=== PATIENT | female | born 1940 | race Caucasian/White ===

== ENCOUNTER 2025-01-10 10:56 | Inpatient (IN) | payer OTHER, SELFPAY ==
[2025-01-08] VITALS (16 sets, daily range): BP systolic 145–209; BP diastolic 62–86; BMI 32.9; BMI 32.2
[2025-01-08 01:06] LABS: % Basophils 0.6 % (0-2); % Eosinophils 2.7 % (0-6); % Immature Granulocytes 0.4 % (0-0.5); % Lymphocytes 10.9 % (20.5-51.1); % Monocytes 10.2 % (1.7-9.3); % Neutrophils 75.2 % (42.2-75.2); Absolute Basophils 0.1 10^3/uL (0-0.2); Absolute Eosinophils 0.3 10^3/uL (0-0.7); Hematocrit 32.8 % (37.0-47.0); Mean Corp Hgb Conc. 33.5 g/dL (33.0-37.0); Mean Corpuscular Hgb 33.1 pg (27.0-31.0); Mean Corpuscular Volume 98.8 fL (81.0-99.0); Mean Platelet Volume 11.7 fL (7.4-10.4); Nucleated Red Blood Cells % 0 %; Platelet Count 201 10^3/uL (130-400); Red Blood Cell Count 3.32 10^6/uL (4.20-5.40); White Blood Cell Count 9.3 10^3/uL (4.8-10.8)
[2025-01-08 01:27] LABS: Troponin I 0.014 ng/ml
[2025-01-08 02:01] LABS: ALT (SGPT) 19 U/L (0-35); AST (SGOT) 31 U/L (14-36); Albumin 4.5 g/dl (3.5-5.0); Alkaline Phosphatase 86 U/L (38-126); Blood Urea Nitrogen 44 mg/dl (7-17); Calcium 9.3 mg/dl (8.4-10.2); Carbon Dioxide 26 mmol/L (22-30); Chloride 107 mmol/L (98-107); Estimated Creatinine Clearance 29 ml/min; Glucose 93 mg/dl (70-99); Potassium 4.5 mmol/L (3.5-5.1); Sodium 145 mmol/L (135-145); Total Bilirubin 1.2 mg/dl (0.2-1.3); Total Protein 6.9 g/dl (6.3-8.2)
--- NOTE | 2025-01-08 02:16 | ED.GENMED ---
History of Present Illness
General
Chief Complaint: Chest Pain
Source: patient and family (Daughter at bedside)
Exam Limitations: none
Time Seen by Provider: 01/08/25 01:52
Nursing documentation reviewed up to this point in time: agreed with
History of Present Illness
History of Present Illness:
This is an 84-year-old woman who resides in [facility]. She has a history of CAD, aortic valve disease status post CABG, pacemaker and bioprosthetic aortic valve replacement 2020. She has history of chronic kidney disease stage II-III,
hypertension.
She is currently staying locally as her son is currently admitted to the ICU, in critical condition. She admits to moderate stress over the past few weeks and tonight shortly after dinner she developed acute lower substernal chest discomfort which
she described as a tightness associated with some shortness of breath. Chest tightness is nonradiating, she denies nausea nor palpitations, no abdominal nor back pain, no diaphoresis, no burping. Chest pain seems to be intermittent, unrelieved
with Tums. She then took one 325 mg aspirin. She arrives via EMS and upon arrival she is pain-free and remains pain-free.
No history of similar episodes of pain in the past.
She denies leg pain or swelling. No recent URI.
Past History
Past History
ED Past Medical History: CAD, HTN, Renal failure (Chronic kidney disease stage II-III), Valvular disease and Other (Osteoarthritis)
ED Past Surgical History: Cardiac (CABG, pacemaker, bioprosthetic aortic valve replacement 2020; PTCA with stent to the RCA August 2014) and Other (Renal artery stenting 2007)
Social History
Tobacco: Non-smoker
Alcohol: None
Personal:
Living: with family
Employment: Retired
Family History
Family History: Other (Noncontributory)
Phy Exam
Physical Exam
Physical Exam:
GENERAL: 84-year-old woman appears her stated age, bright and alert, pleasant, easily communicative and in no acute distress. Daughter is accompanying.
EYE: anicteric
NECK: Supple, nontender, no meningismus, no significant adenopathy.
ENT: oral mucosa is moist. No rhinorrhea.
CARDIAC: Regular rate and rhythm. no murmur.
LUNGS: Clear breath sounds bilaterally, no acute respiratory distress, no wheezes/rales/rhonchi
ABDOMEN: Soft, nondistended, without focal tenderness, normoactive BS.
NEUROLOGICAL: Alert and oriented x3, no focal neuro deficits. Gait is steady. Ambulates with cane.
SKIN: Warm and dry, normal color, skin intact. No rash.
MUSCULOSKELETAL: No C/C/E. peripheral pulses are full and equal b/l. No palpable tenderness.
PSYCH: Normal and appropriate interaction.
Scores
Heart Score for Chest Pain Patients
STEMI patient?: No
History: Moderately Suspicious
ECG: Normal
Age: >/= 65 years
Risk Factors: >/= 3 Risk Factors or History of CAD
Troponin: >1 - <3 x Normal Limit
Heart Score for Chest Pain Patients: 6
Heart Score Risk: 20.3% MACE over next 6 weeks
Course
Orders/Labs/Results
Orders:
Orders
01/08/25 00:30
ECG [Electrocardiogram (*1)] Urgent
Reason for Study: Chest Pain
01/08/25 00:33
EKG- Treatment ONCE
01/08/25 00:56
Complete Blood Count/With Diff Urgent
Troponin I Urgent
01/08/25 01:36
Comprehensive Metabolic Panel Urgent
Lipase Urgent
01/08/25 01:59
EKG- Treatment ONCE
01/08/25 02:16
CR Chest - 2 Views Urgent
Comment:
Reason For Exam: acute CP, SOB
01/08/25 03:00
Electrocardiogram (*1) Urgent
Reason for Study: Chest Pain
01/08/25 03:19
Troponin I Urgent
Abnormal Lab Results
01/08/25 01/08/25 01/08/25
00:56 01:36 03:19
RBC 3.32 L 10^6/uL
(4.20-5.40)
Hgb 11.0 L g/dL
(12.0-16.0)
Hct 32.8 L %
(37.0-47.0)
MCH 33.1 H pg
(27.0-31.0)
MPV 11.7 H fL
(7.4-10.4)
Absolute Neuts (auto) 7.0 H 10^3/uL
(1.4-6.5)
Absolute Lymphs (auto) 1.0 L 10^3/uL
(1.2-3.4)
Absolute Monos (auto) 1.0 H 10^3/uL
(0.1-0.6)
Lymphocytes % 10.9 L %
(20.5-51.1)
Monocytes % 10.2 H %
(1.7-9.3)
BUN 44 H mg/dl
(7-17)
Creatinine 1.3 H mg/dL
(0.6-1.0)
Troponin I 0.040 H* D ng/ml
Lipase 329 H U/L
(23-300)
01/08/25 00:56
01/08/25 01:36
Vital Signs
Initial and Last Documented VS:
Initial Vital Signs
Temp Pulse Resp BP Pulse Ox
98.2 F 91 20 176/70 98
01/08/25 00:36 01/08/25 00:36 01/08/25 00:36 01/08/25 00:36 01/08/25 00:36
Last Documented Vital Signs
Temp Pulse Resp BP Pulse Ox
98.2 F 82 13 182/73 94
01/08/25 00:36 01/08/25 04:00 01/08/25 04:00 01/08/25 04:00 01/08/25 04:00
MDM/Problems Addressed
Differential Diagnosis Includes:
Concern for acute ACS, GERD, other consideration is biliary colic, less likely dissection, pneumonia, CHF.
Remains comfortable and pain-free since arrival to the ED.
EKG similar and unchanged from previous April 2021.
Thus far labs are unremarkable. Creatinine of 1.3, at patient's baseline.
Troponin 0.014.
Will check chest x-ray.
Will plan to repeat troponin/EKG at 3 AM.
Chronic conditions affecting care: HTN, CAD and Kidney disease
*Radiology
Radiology exam reviewed: preliminary read by ED provider (Chest x-ray shows interstitial lung disease slightly progressed compared to previous 2020)
*Pulse Oximetry
Patient hypoxic: no
*EKG
Interpreted by ED Provider?: Yes
Comparison EKG: no changes (Unchanged from previous April 2021)
Rate: normal
Rhythm: sinus
[place]: normal axis
Interval: normal interval
QRS Pattern: poor R-wave progression
Ischemia: no ischemia
*Glass Worker Interpretation
Rate: normal
Interpretation: normal
Rhythm: sinus
*Critical Care Note
Total Time (30-74mins, 75-104mins- exclusive of procedures): Not Applicable
Update Note
Update Note:
04:00
Patient remains pain-free and comfortable.
Repeat EKG similar to previous but troponin has trended up to 0.04.
Significant concern for CAD/anginal event tonight thus will admit to hospital service, will continue to trend troponin.
ED Attending Note
-
Portions of this chart may have been created with voice recognition software.� Occasional wrong word or��sound alike� substitutions may have occurred due to the inherent limitations of voice recognition software.
Discharge Plan
Departure
Patient Disposition: Admit
Date of Disposition: 01/08/25
Time of Disposition: 04:00
Admit to: Telemetry
Admit to doctor: Stevo
Presentation/result/management discussed w/ accepting MD/DO: Hospitalist
Condition: Fair
Discharge Problem:
Chest pain rule out ACS
Prescriptions:
No Action
aspirin 81 MG tablet,chewable
81 mg PO DAILY
carvedilol 12.5 MG tablet
12.5 mg PO BID
amlodipine 10 MG tablet
5 mg PO DAILY
colchicine [Colcrys] 0.6 MG tablet
0.6 mg PO DAILYPRN PRN (Reason: gout)
Rx Instructions:
Takes 1 or 2 daily PRN
atorvastatin 80 mg Tablet
80 mg PO DAILY
ethacrynic acid 50 mg Tablet
100 mg PO DAILY
allopurinol 100 mg Tablet
100 mg PO DAILY
magnesium 200 mg Tablet
400 mg PO DAILY
Vitamin C
PO DAILY
Vitamin D3
PO DAILY
Referrals:
UNKNOWN - PT DOES,NOT KNOW [Family Provider] -
Interventions
Interventions:
*Risk Screen - Suicide Last Done: 01/08/25 00:36
*General Assessment Last Done: 01/08/25 00:36
*Neglect/Abuse Screening Last Done: 01/08/25 00:36
*ED- Fall Risk Assessment Last Done: 01/08/25 01:00
*ED COVID-19 Vaccine History Last Done: 01/08/25 00:36
ED- Cardiac Assessment Last Done: 01/08/25 01:00
Discharge Date and Time
Print Language: KAZAKH
[2025-01-08 03:13] LABS: Lipase 329 U/L (23-300)
--- NOTE | 2025-01-08 04:40 | HPS.HSE ---
Family Physician
-
Family Physician: NOT KNOW UNKNOWN - PT DOES
Chief Complaint
-
Chest Pain
History of Present Illness
Patient is an 84y F with PMH significant for ASCVD with CAD, carotid and renovascular disease who presents to ED complaining of chest pain / epigastric pain. Patient notes that she has had a remarkably stressful week or two. She has had
multiple friends / family members with recent health issues including her son who is currently hospitalized in our ICU. Patient states that she noted epigastric / lower chest 'tightness' this evening after dinner. Discomfort started around 10 PM
and prompted patient to present to the ED for further evaluation. She denies any associated symptoms such as nausea, diaphoresis, SOB, etc.
Upon arrival to the ED, patient noted that her discomfort had resolved. She is currently resting comfortably with no complaints.
Medical History
Past Medical History
Past Medical History: Reports Other
Additional Past Medical History:
ASCVD (CAD, Carotid Stenosis, Bilateral Renal Artery Stenosis)
Hypertension
CKD III
Gout
Past Surgical History: Reports Other
Additional Past Surgical History:
CABG
Aortic Valve Replacement
Bilateral Carotid Stents
Bilateral Renal Artery Stents
PTCA with Stent
Social History
Tobacco: Non-smoker
Alcohol: Occasional
Drug: None
Family History
Family History: Not pertinent
Allergies / Home Medications
Allergies reflects when Allergies were last updated in [facility].
Home Medications with original date entered in [facility]
Allergy/Medication List:
Allergies
Allergy/AdvReac Type Severity Reaction Status Date / Time
No Known Allergies Allergy Verified 05/09/21 07:44
Home Medications
aspirin 81 mg chewable tablet 81 mg PO DAILY 09/02/14
amlodipine 10 mg tablet 5 mg PO DAILY 05/09/21
carvedilol 12.5 mg tablet 12.5 mg PO BID 05/09/21
colchicine 0.6 mg tablet (Colcrys) 0.6 mg PO DAILYPRN PRN gout 05/09/21
Vitamin C PO DAILY 01/08/25
Vitamin D3 PO DAILY 01/08/25
allopurinol 100 mg tablet 100 mg PO DAILY 01/08/25
atorvastatin 80 mg tablet 80 mg PO DAILY 01/08/25
ethacrynic acid 50 mg tablet 100 mg PO DAILY 01/08/25
magnesium 200 mg tablet 400 mg PO DAILY 01/08/25
Review of Systems
-
History Source: Patient
A 12 point ROS was completed and negative except as noted: Yes
Constitutional: Reports Fatigue; Denies Fever or Chills
Respiratory: Denies Cough or Trouble Breathing
Cardiac: Reports Chest Pain; Denies Palpitations
Abdomen/GI: Reports Abdominal Pain; Denies Nausea, Vomiting or Diarrhea
: Denies Dysuria or Frequency
Musculoskeletal: Denies Joint Pain or Edema
Neurological: Denies Dizzy or Headache
Psych: Denies Depression or Anxiety
Physical Exam
Vital Signs
Vital Signs
Temp Pulse Resp BP Pulse Ox
98.2 F 82 13 182/73 94
01/08/25 00:36 01/08/25 04:00 01/08/25 04:00 01/08/25 04:00 01/08/25 04:00
Physical Exam
General: Other (84y F in no acute distress.)
HEENT: Moist mucous membranes and PERRLA
Respiratory: Clear; No Wheezes, Rales or Rhonchi
Cardiac: S1/S2 and Regular Rhythm; No Murmur
GI: Soft, Non Tender, Non Distended and Normal Bowel Sounds
Musculoskeletal: No Clubbing, No Cyanosis and No Edema
Neuro: AO x 3
Laboratory Results
-
01/08/25 00:56
01/08/25 01:36
Laboratory Results
Total Bilirubin 1.2 mg/dl (0.2-1.3) 01/08/25 01:36
AST 31 U/L (14-36) 01/08/25 01:36
ALT 19 U/L (0-35) 01/08/25 01:36
Alkaline Phosphatase 86 U/L (38-126) 01/08/25 01:36
Troponin I 0.040 ng/ml H* D 01/08/25 03:19
Lipase 329 U/L (23-300) H 01/08/25 01:36
Impression/Plan
-
A/P: Patient is an 84y F with PMH significant for extensive vascular disease who presents to ED complaining of epigastric pain / chest pain this evening.
Epigastric Pain / Chest Pain
ASCVD
- Observe overnight for further evaluation and treatment.
- Patient is pain-free at present.
- EKG shows LVH with repolarization changes and no change from prior tracings.
- Initial troponin 0.014 and slightly increased to 0.04.
- Continue to follow to peak.
- Monitor for any new / recurrent symptoms.
- Cardiology evaluation.
- Continue current CV med regimen including ASA, statin, beta-lizette, etc.
Benign Hypertension
- BP elevated in the ED in patient with anxious affect / hyperactivity.
- Suspect large stress component.
- Continue current BP medications.
- IV hydralazine as needed.
CKD III
- Stable. Renal function is at / near known baseline.
- Continue usual meds including ethacrynic acid.
- Follow for any changes.
DVT Prophylaxis: Subcut heparin
Code Status: Full
[2025-01-08] MEDS: PROTONIX 40 MG PO (08:51)
[2025-01-08] MEDS: ZYLOPRIM 100 MG PO (08:51)
[2025-01-08] MEDS: EDECRIN 100 MG PO (08:51)
[2025-01-08] MEDS: LOW STRENGTH ASPIRIN 81 MG PO (08:51)
[2025-01-08] MEDS: COREG 12.5 MG PO (08:51)
[2025-01-08] MEDS: LIPITOR 80 MG PO (08:51)
[2025-01-08] MEDS: NORVASC 5 MG PO (08:51)
[2025-01-08] MEDS: HEPARIN 5000 UNITS SC (08:53)
[2025-01-08 09:00] LABS: Hematocrit 33.6 % (37.0-47.0); Hemoglobin 10.9 g/dL (12.0-16.0); Mean Corp Hgb Conc. 32.4 g/dL (33.0-37.0); Mean Corpuscular Hgb 32.2 pg (27.0-31.0); Mean Corpuscular Volume 99.1 fL (81.0-99.0); Mean Platelet Volume 11.5 fL (7.4-10.4); Platelet Count 205 10^3/uL (130-400); Red Blood Cell Count 3.39 10^6/uL (4.20-5.40); Red Cell Dist. Width 13.9 % (11.5-14.5); White Blood Cell Count 8.9 10^3/uL (4.8-10.8)
[2025-01-08 09:25] LABS: Troponin I 0.096 ng/ml
[2025-01-08 09:39] LABS: Blood Urea Nitrogen 38 mg/dl (7-17); Calcium 9.7 mg/dl (8.4-10.2); Carbon Dioxide 26 mmol/L (22-30); Chloride 107 mmol/L (98-107); Estimated Creatinine Clearance 31 ml/min; Glucose 100 mg/dl (70-99); HDL Cholesterol 50 mg/dl; LDL Cholesterol, Calculated 40 mg/dl; Lipase 284 U/L (23-300); Potassium 4.2 mmol/L (3.5-5.1); Sodium 143 mmol/L (135-145); Total Cholesterol 108 mg/dl (50-199); Triglyceride 93 mg/dl (10-149); Very Low Density Lipoprotein 18 mg/dl (0-30); eGFR 44.36
--- NOTE | 2025-01-08 10:26 | W.PN.HOSP.TC ---
Today's Communication/Plan
-
See PN
Assessment / Plan
Assessment / Plan
84yo F with PMHX of CAD s/p PCI and OK, carotid stenosis s/p b/l stents, b/l renal stents, CKD stge 3a-b, gout, HLD came with episode of retrosternal pressure started after dinner, lasted for appr 30min. She had episodes of the same before. Patient
currnetly going through a lot family issues and excessively anxious about her son being in ICU.
A/P:
#Chest pain, concern for cardiac
#Bioprosthetic AV
#CAD s/p PCI
Serial troponin
EKG without overt ST elevation
Nitro PRN
Cardio consult
telemetry
Heparin drip
cont ASA, Lipitor, BB
Echo
#Poorly controlled HTN, concenr for HTN emergency
adjust BP meds
spatient not on ARB/ACEi, most liekyl 2/2 Hx of renal artery stenosis
Labetalol PRN
#CKD stage 3a-b
#Gout
cont home meds
#Macrocytic anemia
check B12, folate
DVT ppx hep drip
Full code
I have spent at least 58min reviewing chart, test results, communication with consultants and providing direct patient care
Anticipated Discharge: > 48 hours
Subjective/Interval History
-
Date of Service: January 08, 2025
Objective Data
-
Labs:
Laboratory Results
01/08/25 01/08/25 01/08/25
00:56 01:36 08:35
WBC 9.3
Hgb 11.0 L
Hct 32.8 L
Plt Count 201
APTT
Sodium Cancelled 145 143
Potassium Cancelled 4.5 4.2
Chloride Cancelled 107 107
Carbon Dioxide Cancelled 26 26
BUN Cancelled 44 H 38 H
Creatinine Cancelled 1.3 H 1.2 H
Glucose Cancelled 93 100 H
Calcium Cancelled 9.3 9.7
Total Bilirubin Cancelled 1.2
AST Cancelled 31
ALT Cancelled 19
Alkaline Phosphatase Cancelled 86
01/08/25 01/08/25
08:36 10:24
WBC 8.9
Hgb 10.9 L
Hct 33.6 L
Plt Count 205
APTT Pending
Sodium
Potassium
Chloride
Carbon Dioxide
BUN
Creatinine
Glucose
Calcium
Total Bilirubin
AST
ALT
Alkaline Phosphatase
Vital Signs:
Vital Signs
Temp Pulse Resp BP Pulse Ox
98.5 F 84 13 176/81 95
01/08/25 07:00 01/08/25 07:00 01/08/25 07:00 01/08/25 10:22 01/08/25 07:00
Review of Systems
-
History Source: Patient
All other systems: Reviewed and negative
Physical Exam
-
General: No Apparent Distress
HEENT: Normocephalic
Respiratory: Clear to Auscultation; Negative Wheezes or Rhonchi
Cardiac: Regular Rhythm; Negative Murmur
GI: Soft, Nontender and Nondistended
Genito-urinary: No Costovertebral Tender
Musculoskeletal: No Clubbing, No Cyanosis and No Edema
Neuro: Awake, Alert, Oriented and AO x 3
Psych: Calm
--- NOTE | 2025-01-08 11:05 | CON.CAR ---
Addendum entered and electronically signed by Fidel Parker MD 01/08/25 12:36:
84 yo female with PMH of CAD and , s/p CABG and bio-AVR at [facility] 2020, HTN is admitted with chest pressure. She is currently free of pain/pressure. Exam with RRR, no murmurs, no edema. Intial BP 209/86. TnI 0.096 and trending. EKG: NSR,
LVH, anterior infarct.
Chest pressure, elevated troponin. Concern for ACS vs HTN emergency with non-ischemic troponin elevation. ASA 324mg, heparin drip as we trend troponin.
Original Note:
Consultation
Consultation Request
Date/Time Consultation Requested: 01/08/2025 0900
Date/Time Consultation Performed: 01/08/2025 1045
Requesting Provider: Dr Tarango
Performing Provider: Dr. Parker
Reason for Consultation: CP
Medical History
-
Chief Complaint: CP
History of Present Illness:
84 y/o pt who follows at [facility]. Torres with history of CAD/CAB, / bio AVR ( [facility] [address] Dr. Myers), SSS/PPM,carotid stenosis, renal artery stenosis, CKD3, HTN. She ate dinner last pm around 7p, had ice cream shortly after. She
developed epigastric pressure discomfort into the sternal area. She was belching as well. Latty like reflux. She took TUMS but daughter thought it was lasting longer so wanted her to be evaluated. It went away eventually. No further discomfort or
pain overnight. Usually is active without recent CP, SOB, palps. Increased stress recently as her son is currently admitted her in ICU.
Past Medical History
Past Medical History: Other ( /AVR, CAD/ CAB, CKD, HTN,carotid stenosis, renal artery stenosis,gout)
Past Surgical History: Other (CAB, AVR,PPM, renal artery stents)
Social History
Tobacco: Non-Smoker
Alcohol: Occasional
Family History
Family History: Reviewed & Not Pertinent
Allergies / Home Medications
Allergy/AdvReac Type Severity Reaction Status Date / Time
No Known Allergies Allergy Verified 05/09/21 07:44
�Medication �Instructions �Recorded �Confirmed �Type
aspirin 81 mg chewable tablet 81 mg PO DAILY 09/02/14 01/08/25 History
amlodipine 10 mg tablet 5 mg PO DAILY 05/09/21 01/08/25 History
carvedilol 12.5 mg tablet 12.5 mg PO BID 05/09/21 01/08/25 History
colchicine 0.6 mg tablet (Colcrys) 0.6 mg PO DAILYPRN PRN gout 05/09/21 01/08/25 History
Vitamin C PO DAILY 01/08/25 History
Vitamin D3 PO DAILY 01/08/25 History
allopurinol 100 mg tablet 100 mg PO DAILY 01/08/25 01/08/25 History
atorvastatin 80 mg tablet 80 mg PO DAILY 01/08/25 01/08/25 History
ethacrynic acid 50 mg tablet 100 mg PO DAILY 01/08/25 01/08/25 History
magnesium 200 mg tablet 400 mg PO DAILY 01/08/25 01/08/25 History
Review of Systems
-
History Source: Patient
Constitutional: No Symptoms
EENT: No Symptoms
Respiratory: No Symptoms
Cardiac: No Symptoms
Abdomen/GI: No Symptoms
Musculoskeletal: No Symptoms
Neurological: No Symptoms
Physical Exam
Vital Signs
Temp Pulse Resp BP Pulse Ox
98.5 F 84 13 176/81 95
01/08/25 07:00 01/08/25 07:00 01/08/25 07:00 01/08/25 10:22 01/08/25 07:00
Lab Results
01/08/25 08:36
01/08/25 08:35
Troponin I 0.096 ng/ml H* D 01/08/25 08:36
Physical Exam
General: Well Developed, Well Nourished and No Apparent Distress
HEENT: Normocephalic and Moist Mucous Membranes
Respiratory: Clear
Cardiac: S1/S2 and Regular Rhythm
GI: Soft, Non Tender and Normal Bowel Sounds
Musculoskeletal: No Edema
Neuro: AO x 3
Impression / Plan
-
CP:
-symptoms more consistent with GI but troponins were not normal
-currently no recurrent symptoms since admission
-EKG no acute changes
-con't to trend troponin
CAD:
-prior CAB 2020 with AVR
-follows with DR. Brian Earl February- will request records.
-con't current medications
AVR:
-2020 at [facility]
PPM:
-pt unsure what brand
HTN:
-elevated on admit
-coreg was titrated
CKD3b:
-chronic stable
-history of renal artery stenosis
Data Reviewed
-
EKG: Tracing Personally Visualized and interpreted (NSR 81 bpm, LVH, poor R wave progression)
Radiology: Report Reviewed by me (CXR 01/08/25 no acute process)
[2025-01-08] MEDS: HEPARIN 25000 UNITS/250 ML IV (11:15)
[2025-01-08 12:36] LABS: TSH Reflex To Free T4 1.32 uIU/ml (0.47-4.68)
[2025-01-08 13:12] LABS: Folate > 20.0 ng/ml (2.76-20); Vitamin B12 340 pg/ml (239-931)
[2025-01-08 13:42] LABS: Glycohemoglobin (HgbA1c) 5.5 % (4.0-5.6)
[2025-01-08 15:29] LABS: Troponin I 0.137 ng/ml
[2025-01-08 18:00] LABS: APTT 99.7 Sec (23.4-35.0)
[2025-01-08] MEDS: COREG 25 MG PO (20:26)
[2025-01-08 21:35] LABS: Troponin I 0.101 ng/ml
[2025-01-09] VITALS (7 sets, daily range): BP systolic 107–166; BP diastolic 51–85; BMI 31.7
[2025-01-09 02:08] LABS: APTT 115.1 Sec (23.4-35.0)
[2025-01-09 06:05] LABS: % Basophils 0.5 % (0-2); % Eosinophils 3.3 % (0-6); % Immature Granulocytes 0.3 % (0-0.5); % Lymphocytes 12.6 % (20.5-51.1); % Neutrophils 74.3 % (42.2-75.2); Absolute Basophils 0.1 10^3/uL (0-0.2); Absolute Eosinophils 0.4 10^3/uL (0-0.7); Absolute Lymphocytes 1.5 10^3/uL (1.2-3.4); Absolute Neutrophils 8.6 10^3/uL (1.4-6.5); Hematocrit 33.8 % (37.0-47.0); Hemoglobin 10.9 g/dL (12.0-16.0); Mean Corp Hgb Conc. 32.2 g/dL (33.0-37.0); Mean Corpuscular Hgb 32.1 pg (27.0-31.0); Mean Corpuscular Volume 99.4 fL (81.0-99.0); Mean Platelet Volume 11.7 fL (7.4-10.4); Nucleated Red Blood Cells % 0 %; Platelet Count 202 10^3/uL (130-400); Red Cell Dist. Width 13.8 % (11.5-14.5); White Blood Cell Count 11.5 10^3/uL (4.8-10.8)
[2025-01-09 06:35] LABS: ALT (SGPT) 15 U/L (0-35); AST (SGOT) 23 U/L (14-36); Albumin 3.6 g/dl (3.5-5.0); Alkaline Phosphatase 90 U/L (38-126); Blood Urea Nitrogen 39 mg/dl (7-17); Calcium 9.5 mg/dl (8.4-10.2); Carbon Dioxide 28 mmol/L (22-30); Chloride 104 mmol/L (98-107); Estimated Creatinine Clearance 29 ml/min; Glucose 91 mg/dl (70-99); Potassium 4.2 mmol/L (3.5-5.1); Sodium 140 mmol/L (135-145); Total Bilirubin 1.3 mg/dl (0.2-1.3)
[2025-01-09] MEDS: EDECRIN 100 MG PO (08:03)
[2025-01-09] MEDS: ZYLOPRIM 100 MG PO (08:03)
[2025-01-09] MEDS: LOW STRENGTH ASPIRIN 81 MG PO (08:03)
[2025-01-09] MEDS: NORVASC 10 MG PO (08:03)
[2025-01-09] MEDS: LIPITOR 80 MG PO (08:03)
[2025-01-09] MEDS: COREG 25 MG PO ×2 (08:03→20:51)
[2025-01-09 08:10] LABS: APTT 85.4 Sec (23.4-35.0)
[2025-01-09] MEDS: PROTONIX 40 MG PO (08:12)
--- NOTE | 2025-01-09 10:00 | W.PN.HOSP.TC ---
Today's Communication/Plan
-
Cath in AM
Assessment / Plan
Assessment / Plan
84yo F with PMHX of CAD s/p PCI and [place], carotid stenosis s/p b/l stents, b/l renal stents, CKD stge 3a-b, gout, HLD came with episode of retrosternal pressure started after dinner, lasted for appr 30min. She had episodes of the same before. Patient
currnetly going through a lot family issues and excessively anxious about her son being in ICU. Planned for cardiac cath on 01/10/25
A/P:
#Chest pain, concern for cardiac
#Bioprosthetic AV
#CAD s/p PCI
Serial troponin
EKG without overt ST elevation
Nitro PRN
Cardio consult: for cardiac cath on 01/10/25
telemetry
Heparin drip
cont ASA, Lipitor, BB
Echo
#Poorly controlled HTN, concenr for HTN emergency
adjust BP meds
patient not on ARB/ACEi, most likely 2/2 Hx of renal artery stenosis
Labetalol PRN
#CKD stage 3a-b
#Gout
cont home meds
#Macrocytic anemia
B12, folate WNL
#mild leukocytosis
w/o signs of infection
afebrile
monitor CBC
DVT ppx hep drip
Full code
I have spent at least 38min reviewing chart, test results, communication with consultants and providing direct patient care
Anticipated Discharge: 24 - 48 hours
Subjective/Interval History
-
Date of Service: January 09, 2025
Objective Data
-
Labs:
Laboratory Results
01/09/25 01/09/25 01/09/25
01:45 05:32 07:02
WBC 11.5 H
Hgb 10.9 L
Hct 33.8 L
Plt Count 202
APTT 115.1 H 85.4 H
Sodium 140
Potassium 4.2
Chloride 104
Carbon Dioxide 28
BUN 39 H
Creatinine 1.3 H
Glucose 91
Calcium 9.5
Total Bilirubin 1.3
AST 23
ALT 15
Alkaline Phosphatase 90
01/09/25
13:50
WBC
Hgb
Hct
Plt Count
APTT Pending
Sodium
Potassium
Chloride
Carbon Dioxide
BUN
Creatinine
Glucose
Calcium
Total Bilirubin
AST
ALT
Alkaline Phosphatase
Vital Signs:
Vital Signs
Temp Pulse Resp BP Pulse Ox
98.2 F 72 16 166/76 98
01/09/25 07:55 01/09/25 07:55 01/09/25 07:55 01/09/25 07:55 01/09/25 07:55
I&O
01/08/25 01/09/25 01/10/25
06:59 06:59 06:59
Output Total 450 / 450
Balance -450 / -450
Review of Systems
-
History Source: Patient
Constitutional: Reports No Symptoms
Physical Exam
-
General: Comfortable
Respiratory: Clear to Auscultation
GI: Soft, Nontender and Nondistended
Neuro: Awake, Alert, Oriented and AO x 3
Psych: Calm
--- NOTE | 2025-01-09 13:47 | W.PN.CD ---
Today's Communication / Plan
-
ASA, heparin drip
cardiac cath tomorrow
Impression / Plan
-
NSTEMI
-diagnosis is a threat to life
-peak trop 0.137
-ASA, heparin drip
-monitor PTT and Hgb while on heparin
-cardiac cath tomorrow
CAD:
-prior CABG [address] [facility]
-follows with DR. Brian Earl February- records requested
-plan as above
AVR:
-[address] [facility]
-echo
PPM:
-pt unsure what brand
HTN:
-elevated on admit; she also reports component of white coat syndrome
-coreg and amlodipine were increased
CKD3b:
-chronic stable
-history of renal artery stenosis
Physical Exam
Vital Signs/Labs
Vital Signs
Temp Pulse Resp BP Pulse Ox
98.0 F 76 16 107/51 94
01/09/25 11:00 01/09/25 11:00 01/09/25 11:00 01/09/25 11:00 01/09/25 12:45
01/08/25 01/09/25 01/10/25
06:59 06:59 06:59
Actual Weight 74.871 kg 73.68 kg
01/09/25 05:32
01/09/25 05:32
APTT 85.4 Sec (23.4-35.0) H 01/09/25 07:02
Triglycerides 93 mg/dl (10-149) 01/08/25 08:35
LDL Cholesterol, Calc 40 mg/dl 01/08/25 08:35
VLDL Cholesterol, Calc 18 mg/dl (0-30) 01/08/25 08:35
HDL Cholesterol 50 mg/dl 01/08/25 08:35
LAB Results
01/08/25 01/08/25 01/08/25
00:56 03:19 08:36
Troponin I 0.014 0.040 H* D 0.096 H* D
01/08/25 01/08/25 01/08/25
14:25 15:30 21:02
Troponin I 0.137 H* D Cancelled 0.101 H* D
01/08/25
21:30
Troponin I Cancelled
Physical Exam
Constitutional: No acute distress and Comfortable
EENT: Moist mucous membranes
Cardiovascular: Rhythm & rate is regular, Pedal edema is absent, JVD pressure is normal and Systolic murmur absent
Respiratory: Respiratory effort normal and Lungs clear to auscul.
Neuro/Psych: AO x 3
Data Reviewed
-
Date of Service: January 09, 2025
EKG: Other (Tele: SR 80s)
Labs: Labs Reviewed by me
[2025-01-09 13:58] LABS: APTT 72.8 Sec (23.4-35.0)
[2025-01-09] MEDS: HEPARIN 25000 UNITS/250 ML IV (14:24)
--- NOTE | 2025-01-09 15:56 | CM ---
poultry farm manager reviewed patient's chart and patient was admitted under OBS, [facility] letter provided to patient but she did not sign, patient states she is going for surgery tomorrow. Patient lives alone in a one story home patient is independent with
adl's and uses a cane with ambulation, patient has 3 canes throughout home. Plan is to home when stable.
PCP: Dr. Rios
Pharmacy [facility]
Plan; Home when stable.
[2025-01-09] MEDS: MELATONIN 5 MG PO (22:32)
[2025-01-10] VITALS (16 sets, daily range): BP systolic 91–181; BP diastolic 50–76; BMI 31.5
[2025-01-10 05:17] LABS: APTT 105.4 Sec (23.4-35.0)
[2025-01-10] MEDS: LOW STRENGTH ASPIRIN 81 MG PO (08:19)
--- NOTE | 2025-01-10 08:20 | W.PN.CD ---
Today's Communication / Plan
-
Echo.
Cath.
Impression / Plan
-
Impression/Plan: 84 y/o female vasculopath with a history of renal artery stenosis s/p bilateral stents, MILAGROS s/p bilateral carotid stents, s/p BIO-AVR (#21 Wallace Magna Ease Model 3300, 05/20/2021) and CAD s/p prior ostial RCA PCI and CABG (MORSE
to LAD, SVG to OM1, SVG to RPDA) admitted with NSTEMI.
#NSTEMI
-Acute, diagnosis is a threat to life.
-Troponin peaked at 0.137.
-Continue ASA, heparin drip.
-Cardiac cath today.
#CAD
-Chronic.
-S/P 3V CABG (MORSE to LAD, SVG to OM, SVG to RPDA, 05/20/2021) with AVR at [facility].
-Follows with Rajat Ewing Navarro. Records requested.
-Cath today.
#Severe
-Chronic, s/p #21 Wallace Magna Ease 3300 AVR at [facility].
-Echocardiogram pending.
#PPM:
-Chronic, stable.
-Pt unsure what brand.
#Labile HTN:
-History of labile HTN with ANISA, hx of bilateral renal artery stents.
-Elevated on admission; she also reports component of white coat syndrome.
-Carvedilol and amlodipine were increased.
#CKD3b:
-Chronic, stable.
-History of renal artery stenosis s/p bilateral renal artery stents.
#MILAGROS
-Chronic, stable.
-History of prior carotid artery stents.
Subjective/Interval History:
BP improved with higher dose carvedilol.
DATA:
Cardiac Catheterization, 05/09/2021:
CONCLUSIONS:
1. Multivessel coronary artery disease involving the proximal and mid LAD, chronic total occlusion of the obtuse marginal and a visibly underexpanded stent in the ostium of the RCA.
2. Moderately elevated filling pressures.
3. Indeterminate aortic valve stenosis, moderate to severe on echocardiogram with a peak to peak gradient of 35 mmHg on catheterization.
Transthoracic Echo, 05/08/2021:
CONCLUSIONS
Mild left ventricular systolic dysfunction.
Left ventricular ejection fraction is 45% by visual assessment.
Inferior and inferolateral severe hypokinsis.
Moderate to severe aortic stenosis (peak 64, mean 35, GRETEL 1 cm2).
Estimated PASP 48 mmHg.
Moderate aortic regurgitation .
Mild concentric left ventricular hypertrophy.
Mild LAE.
Mild mitral stenosis.
No prior study available for comparison.
Physical Exam
Vital Signs/Labs
Vital Signs
Temp Pulse Resp BP Pulse Ox
37.2 C 81 17 138/61 97
01/10/25 03:44 01/10/25 03:44 01/10/25 03:44 01/10/25 03:44 01/10/25 03:44
01/08/25 01/09/25 01/10/25
11:59 11:59 11:59
Actual Weight 74.871 kg 73.68 kg 73.227 kg
APTT 105.4 Sec (23.4-35.0) H 01/10/25 04:41
Triglycerides 93 mg/dl (10-149) 01/08/25 08:35
LDL Cholesterol, Calc 40 mg/dl 01/08/25 08:35
VLDL Cholesterol, Calc 18 mg/dl (0-30) 01/08/25 08:35
HDL Cholesterol 50 mg/dl 01/08/25 08:35
LAB Results
01/08/25 01/08/25 01/08/25
00:56 03:19 08:36
Troponin I 0.014 0.040 H* D 0.096 H* D
01/08/25 01/08/25 01/08/25
14:25 15:30 21:02
Troponin I 0.137 H* D Cancelled 0.101 H* D
01/08/25
21:30
Troponin I Cancelled
Physical Exam
Constitutional: No acute distress and Comfortable
EENT: Anicteric and Moist mucous membranes
Cardiovascular: Rhythm & rate is regular, Pedal edema is absent, JVD pressure is normal, S1S2 is normal and Murmur/rub/gallop absent
Respiratory: Respiratory effort normal, Lungs clear to auscul., Wheeze Absent, Crackles Absent and Rhonchi Absent
GI: Soft, Distention absent, Flat, Non tender and Normal bowel sounds
Neuro/Psych: AO x 3
Other: Other (Left radial pulse is 1+/4.)
Data Reviewed
-
Date of Service: January 10, 2025
Medical Decision Making: Reviewed Test Results, Independent Historian Assessment and Test Interpretation
EKG: Tracing Personally Visualized and interpreted and Report Reviewed by me
X-Ray/CT/US/MRI/NUC/PET: Image Personally Visualized and interpreted and Report Reviewed by me
Medical Tests (PFT, Pathology etc): Image Personally Visualized and interpreted and Report Reviewed by me
Labs: Labs Reviewed by me
Old Records: Reviewed
[2025-01-10] MEDS: PLAVIX 75 MG PO (11:03)
[2025-01-10] MEDS: EDECRIN 100 MG PO (11:06)
[2025-01-10] MEDS: COREG 25 MG PO ×2 (11:07→23:34)
[2025-01-10] MEDS: LIPITOR 80 MG PO (11:07)
[2025-01-10] MEDS: PROTONIX 40 MG PO (11:07)
[2025-01-10] MEDS: ZYLOPRIM 100 MG PO (11:07)
[2025-01-10] MEDS: NORVASC 10 MG PO (11:07)
--- NOTE | 2025-01-10 11:23 | W.PN.HOSP.TC ---
Today's Communication/Plan
-
monitor BP
Possible d/c in AM
Assessment / Plan
Assessment / Plan
84yo F with PMHX of CAD s/p PCI and MN, carotid stenosis s/p b/l stents, b/l renal stents, CKD stge 3a-b, gout, HLD came with episode of retrosternal pressure started after dinner, lasted for appr 30min. She had episodes of the same before. Patient
currnetly going through a lot family issues and excessively anxious about her son being in ICU. S/p cardiac cath on 01/10/25
A/P:
#Chest pain, concern for cardiac, NSTEMI
#Bioprosthetic AV
#CAD s/p PCI
Serial troponin
EKG without overt ST elevation
Nitro PRN
Cardio consult: for cardiac cath on 01/10/25
telemetry
Heparin drip stopped after cath
cont ASA, Lipitor, BB
Echo
TSH WNL
LDL 40
#Poorly controlled HTN, concern for HTN emergency
adjust BP meds: increased Norvasc and Coreg
patient not on ARB/ACEi, most likely 2/2 Hx of renal artery stenosis
Labetalol PRN
#CKD stage 3a-b
#Gout
cont home meds
#Macrocytic anemia
B12, folate WNL
#mild leukocytosis
w/o signs of infection
afebrile
monitor CBC
DVT ppx hep drip
Full code
I have spent at least 38min reviewing chart, test results, communication with consultants and providing direct patient care
Anticipated Discharge: Within 24 hours
Subjective/Interval History
-
Date of Service: January 10, 2025
Objective Data
-
Labs:
Laboratory Results
01/10/25 01/10/25 01/10/25
04:41 06:00 10:57
WBC Cancelled
Hgb Cancelled
Hct Cancelled
Plt Count Cancelled
APTT 105.4 H Pending
Sodium Pending
Potassium Pending
Chloride Pending
Carbon Dioxide Pending
BUN Pending
Creatinine Pending
Glucose Pending
Calcium Pending
Total Bilirubin Pending
AST Pending
ALT Pending
Alkaline Phosphatase Pending
Vital Signs:
Vital Signs
Temp Pulse Resp BP Pulse Ox
98.0 F 75 18 134/71 97
01/10/25 11:00 01/10/25 11:06 01/10/25 11:00 01/10/25 11:06 01/10/25 11:00
I&O
01/09/25 01/10/25 01/11/25
06:59 06:59 06:59
Intake Total 1320 / 1320
Output Total 450 / 450 900 / 900
Balance -450 / -450 420 / 420
Review of Systems
-
History Source: Patient
All other systems: Reviewed and negative
Physical Exam
-
General: No Apparent Distress
HEENT: Normocephalic
GI: Soft, Nontender and Nondistended
Skin: Warm
Neuro: Awake, Alert, Oriented and AO x 3
Psych: Calm
[2025-01-10 11:30] LABS: APTT 31.6 Sec (23.4-35.0)
--- NOTE | 2025-01-10 13:14 | ITS.CL.CATH ---
[facility] - Catheterization
Cardiac Catheterization
Procedure Report:
CARDIAC CATHETERIZATION REPORT
Date of Procedure: 01/10/2025
Referring: Fidel Parker M.D., Ph.D.
INDICATION: Known CAD status post prior CABG, Non-ST elevation myocardial infarction, unclear type.
PROCEDURE:
1. Left heart catheterization
2. Coronary angiography.
3. Bypass angiography.
A total of 28 minutes of procedural/moderate sedation was utilized. An independent medical billing representative was present to assist with and help manage the patient's level of consciousness and physiologic status.
ACCESS:
1. 6 English right common femoral artery using a modified Seldinger technique with a micropuncture kit under ultrasound guidance. Ultrasound image obtained.
CATHETERS:
1. 5 English JL 4.
2. 5 English JR4.
3. 5 English AL-1.
4. 5 English multipurpose.
HEMODYNAMIC DATA
Weight (kg): 73.0
AO (s/d/x, mmHg): 162/66/101
LV (s/x mmHg): 168/15
LEFT VENTRICULOGRAPHY: Not performed. A bioprosthetic aortic valve replacement is well-seated.
CORONARY ANGIOGRAPHY
Dominance: Right.
Left Main: Normal size, bifurcating vessel. There is some ostial/proximal vessel narrowing that is difficult to characterize.
LAD: Normal size vessel giving rise to a single large diagonal which parallels the mid and distal LAD and a dual system. There is an 80%, densely calcified proximal LAD lesion followed by a 70+% lesion spanning the origin of the diagonal. There
is a 70-80% lesion in the proximal margin of the large diagonal. The diagonal is filled via patent MORSE graft.
Ramus: Congenitally absent.
Circumflex: Normal size, nondominant graft giving rise to 2 obtuse marginals. OM1 and OM 2 are chronically totally occluded at their origin. OM1 is supplied by a patent vein graft.
RCA: Large size, dominant vessel. A visibly underexpanded stent is seated in the origin of the RCA which cannot be directly engaged. And has a residual 70% stenosis.
BYPASS GRAFT ANGIOGRAPHY
MORSE to D1: Normal size graft with end-to-side anastomosis to the large first diagonal which parallels the LAD. There is no evidence of stenosis or graft degeneration.
SVG to OM1: Normal size graft with end-to-side anastomosis to the small first obtuse marginal. There is a 50% lesion in the proximal margin of the vein graft. There is not 80-90% lesion at the distal anastomosis.
SVG to distal RCA: Occluded at its origin.
INTERVENTION(S)
None.
Closure Device: 6 English Angio-Seal.
Radiation (mGy): 417.01
DAP (cm2.Gy): 37.4613
Fluoroscopy time (minutes): 11.7
CONCLUSIONS
1. Right dominant circulation with ostial/proximal left main disease that is difficult to characterize, and 80% densely calcified proximal LAD lesion followed by a 70+ percent LAD lesion spanning the origin of the first diagonal, 70-80% lesion in
the proximal margin of the first diagonal, chronic total occlusions of the first and second obtuse marginal and a visibly underexpanded stent in the ostium of the RCA with a residual 70% stenosis, status post bypass (patent MORSE to D1, patent SVG to
OM1 with a 50% lesion in the proximal graft and a 80-, 90% lesion at the anastomosis occluded SVG to distal RCA).
2. Mildly elevated filling pressures (LVEDP = 15 mmHg at 73.0 kg).
RECOMMENDATIONS:
1. Expectant management after cardiac catheterization via right common femoral approach.
2. Limited weight bearing for one week.
3. After reviewing the patient's symptoms (1 episode of indigestion) and evaluating her clinical presentation with a low troponin elevation in the context of severe, labile hypertension, the decision was made to manage the patient medically given
her advanced age and poor targets. The most obvious culprit is the 90% lesion in the vein graft anastomosis to OM1, however the OM1 vessel is a small territory, smaller than the catheter, making the likelihood of trauma to the artery quite high.
4. If the patient experiences typical anginal symptoms with her activities of daily living, we can consider intervention on the LAD and left main, though this was deferred at this time due to the revascularization of the parallel territory.
5. The right coronary artery is not accessible for reintervention.
6. OMT/GDMT as hemodynamics will tolerate.
7. Add clopidogrel 75 mg daily for medical management of NSTEMI.
Copy to: Fidel Parker M.D., Ph.D., Paco Tarango M.D.
Pavan Sim DO, FACC, FACP
[2025-01-10 13:35] LABS: ALT (SGPT) 15 U/L (0-35); AST (SGOT) 19 U/L (14-36); Albumin 3.8 g/dl (3.5-5.0); Alkaline Phosphatase 88 U/L (38-126); Blood Urea Nitrogen 41 mg/dl (7-17); Calcium 9.5 mg/dl (8.4-10.2); Carbon Dioxide 30 mmol/L (22-30); Chloride 106 mmol/L (98-107); Estimated Creatinine Clearance 26 ml/min; Glucose 105 mg/dl (70-99); Potassium 4.3 mmol/L (3.5-5.1); Sodium 142 mmol/L (135-145); Total Bilirubin 1.5 mg/dl (0.2-1.3); Total Protein 6.3 g/dl (6.3-8.2); eGFR 36.87
[2025-01-10 14:55] LABS: % Basophils 0.3 % (0-2); % Eosinophils 1.4 % (0-6); % Immature Granulocytes 0.5 % (0-0.5); % Lymphocytes 6.4 % (20.5-51.1); % Monocytes 11.1 % (1.7-9.3); % Neutrophils 80.3 % (42.2-75.2); Absolute Eosinophils 0.2 10^3/uL (0-0.7); Absolute Immature Granulocytes 0.1 10^3/uL (0-0.05); Absolute Lymphocytes 0.7 10^3/uL (1.2-3.4); Absolute Monocytes 1.2 10^3/uL (0.1-0.6); Absolute Neutrophils 8.9 10^3/uL (1.4-6.5); Hematocrit 33.2 % (37.0-47.0); Hemoglobin 10.9 g/dL (12.0-16.0); Mean Corp Hgb Conc. 32.8 g/dL (33.0-37.0); Mean Corpuscular Hgb 32.3 pg (27.0-31.0); Mean Corpuscular Volume 98.5 fL (81.0-99.0); Mean Platelet Volume 11.6 fL (7.4-10.4); Nucleated Red Blood Cells % 0 %; Platelet Count 193 10^3/uL (130-400); Red Blood Cell Count 3.37 10^6/uL (4.20-5.40); White Blood Cell Count 11.1 10^3/uL (4.8-10.8)
[2025-01-10] MEDS: NSS 500 IV (16:27)
[2025-01-10 16:44] LABS: COVID-19 Antigen Negative (Negative)
[2025-01-10 18:11] LABS: Urine Albumin 2+ (Neg - Trace); Urine Bilirubin Negative (Negative); Urine Character Cloudy (Clear); Urine Color Yellow; Urine Glucose Negative (Negative); Urine Ketone Negative (Negative); Urine Leukocyte 3+ (Negative); Urine Nitrite Negative (Negative); Urine Occult Blood 2+ (Negative); Urine Urobilinogen Negative (Neg - 1+)
[2025-01-10 19:17] LABS: Urine Squamous Cell 0-2 /LPF (Few)
[2025-01-10 19:18] LABS: Urine White Cell >100 /HPF (0-5)
[2025-01-10 19:19] LABS: Urine Bacteria Many (Negative); Urine Red Blood Cell 0-2 /HPF (0-2)
[2025-01-10] MEDS: TYLENOL 650 MG PO (21:37)
[2025-01-10] MEDS: ROCEPHIN 1000 MG IV (21:48)
[2025-01-10] MEDS: STERILE WATER FOR INJECTION 10 ML IV (21:48)
[2025-01-11] VITALS (7 sets, daily range): BP systolic 104–152; BP diastolic 45–61; PULSE 80; O2SAT 96; BMI 31.5
--- NOTE | 2025-01-11 07:18 | W.PN.CD ---
Today's Communication / Plan
-
Maintain new anti-hypertension regimen.
DAPT.
Stable for outpatient follow up.
Impression / Plan
-
Impression/Plan: 84 y/o female vasculopath with a history of renal artery stenosis s/p bilateral stents, MILAGROS s/p bilateral carotid stents, s/p BIO-AVR (#21 Wallace Magna Ease Model 3300, 05/20/2021) and CAD s/p prior ostial RCA PCI and CABG (MORSE
to LAD, SVG to OM1, SVG to RPDA) admitted with NSTEMI.
#NSTEMI
-Acute.
-Troponin peaked at 0.137.
-Cardiac catheterization shows severe, multivessel disease, but no obvious culprit for her episode.
-The most likely culprit is a 90% lesion at the anastomosis of the SVG to OM1, but the receiving vessel is < 1.5 mm in diameter, making intervention high risk for vessel rupture/disruption to a very small territory.
-Given the low level troponin with one episode of indigestion, the decision was made to manage this medically. Clopidogrel added.
-If the patient were to have consistent, typical angina with ADL's, intervention on the LMCA/LAD would be reasonable but require atherectomy.
#CAD
-Chronic.
-S/P 3V CABG (MORSE to D1, SVG to OM, SVG to RPDA, 05/20/2021) with AVR at [facility].
-Follows with Rajat Ewing [place]ille. Records requested.
-Cath re-confirmed severe, multivessel disease. The MORSE is grafted to a large D1 which parallels the LAD. There is significant LMCA/pLAD disease as well. The SVG to the RCA is occluded and there is a 90% lesion at the anastomosis of the SVG to
OM1. Medical management with anti-anginal therapy and DAPT. Consideration for future revascularization as detailed above.
#Severe
-Chronic, s/p #21 Wallace Magna Ease 3300 AVR at [facility].
-Echocardiogram pending.
#PPM:
-Chronic, stable.
-Pt unsure what brand.
#Labile HTN:
-History of labile HTN with ANISA, hx of bilateral renal artery stents.
-Elevated on admission; she also reports component of white coat syndrome.
-Much improved after increasing carvedilol to 25 mg BID and amlodipine to 10 mg daily.
#CKD3b:
-Chronic, stable.
-History of renal artery stenosis s/p bilateral renal artery stents.
#MILAGROS
-Chronic, stable.
-History of prior carotid artery stents.
#Dispo
-Stable for outpatient follow up.
Subjective/Interval History:
Cath reconfirms severe multivessel CAD and clarifies bypass anatomy - MORSE to large D1 which parallels the LAD, SVG to OM1 and SVG to RCA.
The SVG to RCA is occluded.
The SVG to OM1 has a 90% lesion at the anastomosis, but the receiving vessel is too small for intervention.
There is significant LMCA disease and reasonably severe LAD disease.
Given the patient's age, her brief symptoms in the context of severe hypertension and poor interventional targets, the decision was made to manage the situation medically, but re-address the LMCA/LAD if the patient experiences typical angina with
her ADL's.
BP is much better on carvedilol 25 mg BID and amlodipine 10 mg daily.
Labs pending.
DATA:
Cardiac Catheterization, 05/09/2021:
CONCLUSIONS:
1. Multivessel coronary artery disease involving the proximal and mid LAD, chronic total occlusion of the obtuse marginal and a visibly underexpanded stent in the ostium of the RCA.
2. Moderately elevated filling pressures.
3. Indeterminate aortic valve stenosis, moderate to severe on echocardiogram with a peak to peak gradient of 35 mmHg on catheterization.
Transthoracic Echo, 05/08/2021:
CONCLUSIONS
Mild left ventricular systolic dysfunction.
Left ventricular ejection fraction is 45% by visual assessment.
Inferior and inferolateral severe hypokinsis.
Moderate to severe aortic stenosis (peak 64, mean 35, GRETEL 1 cm2).
Estimated PASP 48 mmHg.
Moderate aortic regurgitation .
Mild concentric left ventricular hypertrophy.
Mild LAE.
Mild mitral stenosis.
No prior study available for comparison.
Cardiac Catheterization, 01/10/2025:
CONCLUSIONS
1. Right dominant circulation with ostial/proximal left main disease that is difficult to characterize, and 80% densely calcified proximal LAD lesion followed by a 70+ percent LAD lesion spanning the origin of the first diagonal, 70-80% lesion in
the proximal margin of the first diagonal, chronic total occlusions of the first and second obtuse marginal and a visibly underexpanded stent in the ostium of the RCA with a residual 70% stenosis, status post bypass (patent MORSE to D1, patent SVG to
OM1 with a 50% lesion in the proximal graft and a 80-, 90% lesion at the anastomosis occluded SVG to distal RCA).
2. Mildly elevated filling pressures (LVEDP = 15 mmHg at 73.0 kg).
Physical Exam
Vital Signs/Labs
Vital Signs
Temp Pulse Resp BP Pulse Ox
36.4 C 77 17 104/53 96
01/11/25 03:20 01/11/25 03:20 01/11/25 03:20 01/11/25 03:20 01/11/25 03:20
01/09/25 01/10/25 01/11/25
11:59 11:59 11:59
Actual Weight 73.68 kg 73.227 kg 73.227 kg
APTT 31.6 Sec (23.4-35.0) 01/10/25 10:57
Triglycerides 93 mg/dl (10-149) 01/08/25 08:35
LDL Cholesterol, Calc 40 mg/dl 01/08/25 08:35
VLDL Cholesterol, Calc 18 mg/dl (0-30) 03/22/25 08:35
HDL Cholesterol 50 mg/dl 01/08/25 08:35
LAB Results
01/08/25 01/08/25 01/08/25
08:36 14:25 15:30
Troponin I 0.096 H* D 0.137 H* D Cancelled
01/08/25 01/08/25
21:02 21:30
Troponin I 0.101 H* D Cancelled
Physical Exam
Constitutional: No acute distress and Comfortable
EENT: Anicteric and Moist mucous membranes
Cardiovascular: Rhythm & rate is regular, Pedal edema is absent, JVD pressure is normal, S1S2 is normal and Murmur/rub/gallop absent
Respiratory: Respiratory effort normal, Lungs clear to auscul., Wheeze Absent, Crackles Absent and Rhonchi Absent
GI: Soft, Distention absent, Flat, Non tender and Normal bowel sounds
Neuro/Psych: AO x 3
Other: Cath Site (Right femoral access site is C/D/I.)
Data Reviewed
-
Date of Service: January 11, 2025
Medical Decision Making: Reviewed Test Results, Independent Historian Assessment and Test Interpretation
EKG: Tracing Personally Visualized and interpreted and Report Reviewed by me
Echo: Ordered by me
X-Ray/CT/US/MRI/NUC/PET: Image Personally Visualized and interpreted and Report Reviewed by me
Medical Tests (PFT, Pathology etc): Image Personally Visualized and interpreted, Report Reviewed by me, Discussed with Nurse, Discussed with Patient and Discussed with Family
Labs: Labs Reviewed by me
Old Records: Reviewed
[2025-01-11 07:39] LABS: Hematocrit 33.1 % (37.0-47.0); Hemoglobin 10.7 g/dL (12.0-16.0); Mean Corp Hgb Conc. 32.3 g/dL (33.0-37.0); Mean Corpuscular Hgb 32.4 pg (27.0-31.0); Mean Corpuscular Volume 100.3 fL (81.0-99.0); Mean Platelet Volume 12.1 fL (7.4-10.4); Platelet Count 163 10^3/uL (130-400); Red Cell Dist. Width 14.1 % (11.5-14.5); White Blood Cell Count 11.6 10^3/uL (4.8-10.8)
[2025-01-11 08:18] LABS: Blood Urea Nitrogen 50 mg/dl (7-17); Calcium 9.6 mg/dl (8.4-10.2); Carbon Dioxide 25 mmol/L (22-30); Chloride 106 mmol/L (98-107); Estimated Creatinine Clearance 19 ml/min; Glucose 109 mg/dl (70-99); Potassium 4.1 mmol/L (3.5-5.1); Sodium 141 mmol/L (135-145); eGFR 25.56
[2025-01-11] MEDS: LIPITOR 80 MG PO (09:00)
[2025-01-11] MEDS: PLAVIX 75 MG PO (09:00)
[2025-01-11] MEDS: COREG 25 MG PO ×2 (09:00→19:27)
[2025-01-11] MEDS: ZYLOPRIM 100 MG PO (09:00)
[2025-01-11] MEDS: LOW STRENGTH ASPIRIN 81 MG PO (09:01)
[2025-01-11] MEDS: PROTONIX 40 MG PO (09:01)
[2025-01-11] MEDS: EDECRIN PO (09:09)
[2025-01-11] MEDS: NSS 1000 IV (09:48)
--- NOTE | 2025-01-11 10:28 | W.PN.HOSP.TC ---
Addendum entered and electronically signed by Paco Tarango MD 01/11/25 11:41:
FeNa 0.3%, patient is not in overt HF, concern for KETURAH vs hypotension. COnt hydration and follow labs in AM
Original Note:
Today's Communication/Plan
-
hold diuretics
stop Norvasc
IVF
US bladder
cont Ceftriaxone
follow Cr in AM
Assessment / Plan
Assessment / Plan
84yo F with PMHX of CAD s/p PCI and OH, carotid stenosis s/p b/l stents, b/l renal stents, CKD stge 3a-b, gout, HLD came with episode of retrosternal pressure started after dinner, lasted for appr 30min. She had episodes of the same before. Patient
currnetly going through a lot family issues and excessively anxious about her son being in ICU. S/p cardiac cath on 01/10/25. Later found UTI and post-cath PATRICIA
A/P:
#PATRICIA on CKD stage 3a-b
Cannot exclude KETURAH
also transient hypotension - Norvasc hold
Urine Osm, Cr, Na
US renal
IVF
#mild leukocytosis 2/2 UTI
w/o signs of infection
afebrile
monitor CBC
#Chest pain, concern for cardiac, NSTEMI
#Bioprosthetic AV
#CAD s/p PCI
Serial troponin
EKG without overt ST elevation
Nitro PRN
Cardio consult: cardiac cath on 01/10/25 -The most obvious culprit is the 90% lesion in the vein graft anastomosis to OM1, however the OM1 vessel is a small territory, smaller than the catheter, making the likelihood of trauma to the artery quite
high, decided on medical mgmt
telemetry
Heparin drip stopped after cath
cont ASA, Plavix, Lipitor, BB
Echo
TSH WNL
LDL 40
#Poorly controlled HTN, concern for HTN emergency
adjust BP meds: increased Norvasc and Coreg initially, but developed hypotension after cardiac cath
patient not on ARB/ACEi, most likely 2/2 Hx of renal artery stenosis
Labetalol PRN
#Gout
cont home meds
#Macrocytic anemia
B12, folate WNL
DVT ppx hep
Full code
I have spent at least 56min reviewing chart, test results, communication with consultants and providing direct patient care
Anticipated Discharge: 24 - 48 hours
Subjective/Interval History
-
Date of Service: January 11, 2025
Objective Data
-
Labs:
Laboratory Results
01/11/25
07:05
WBC 11.6 H
Hgb 10.7 L
Hct 33.1 L
Plt Count 163
Sodium 141
Potassium 4.1
Chloride 106
Carbon Dioxide 25
BUN 50 H
Creatinine 1.9 H
Glucose 109 H
Calcium 9.6
Vital Signs:
Vital Signs
Temp Pulse Resp BP Pulse Ox
97.6 F 82 18 125/57 97
01/11/25 07:35 01/11/25 09:00 01/11/25 07:35 01/11/25 09:00 01/11/25 07:35
I&O
01/10/25 01/11/25 01/12/25
06:59 06:59 06:59
Intake Total 1320 / 1320 600 / 600
Output Total 900 / 900 1725 / 1725
Balance 420 / 420 -1125 / -1125
Review of Systems
-
History Source: Patient
All other systems: Reviewed and negative
Physical Exam
-
General: No Apparent Distress
HEENT: Normocephalic
Cardiac: Regular Rhythm
GI: Soft, Nontender and Nondistended
Musculoskeletal: No Clubbing, No Cyanosis and No Edema
Neuro: Awake, Alert, Oriented and AO x 3
Psych: Calm
[2025-01-11 11:08] LABS: Osmolality Urine 433 mOsm/kg (300-900)
[2025-01-11 11:29] LABS: Urine Sodium 33 mmol/L (30-90)
--- NOTE | 2025-01-11 13:46 | CM ---
Chart reviewed. Care ongoing at this time.
Cont abx. Nephro consulted
Plan: Home; no needs
--- NOTE | 2025-01-11 14:41 | W.CON.NEPH ---
Consultation
-
Date/Time Consultation Requested: 01/11/25 1142
Date/Time Consultation Performed: 01/11/25 1545
Requesting Provider: Paco Bass
Performing Provider: Mariama Patino
Reason for Consultation: PATRICIA
Medical History
-
Chief Complaint: CP
History of Present Illness:
Patient is an 84y F with PMH significant for ASCVD with CAD, s/p CABG on ASA, ethacrynic acid, s/p bio AVR 2020, SSS s/p PPM, carotid stenosis, HTN on coreg, Amlodipine bilat renal art stenosis s/p stents, CKD3 1.2-1.3, atrophic one kidney
follows nephrology at [facility], who visitng her daughter presents to ED complaining of chest pain / epigastric pain on 01/08. She noted to have NSTEMI and LHC on 01/10 showed MVD, no target and decision made to manage medically since currently no
symptoms present. LVEDP was slightly up at 15. Clopidogrel was added. Her cr increased to 1.9 today from 1.4 yesterday hence nephrology asked to evaluate. Ethacrynic acid and Amlodpine on hold today. Received 1.5lit NS with LHC on 01/10 for soft
Bps.
She thinks broke out in rash with other diuretics in the past hence she is on Ethacrynic acid for last 2yrs.
Past Medical History
CAD, CABG
Carotid Stenosis,
Bilateral Renal Artery Stenosis with stents,
Hypertension
CKD III
Gout
Past Surgical History: Other (CABG Aortic Valve Replacement Bilateral Carotid Stents Bilateral Renal Artery Stents PTCA with Stent)
Social History
Tobacco: Non-Smoker
Alcohol: Occasional
Drug: None
Family History
Family History: Not Pertinent
Allergies / Home Medications
Allergy/AdvReac Type Severity Reaction Status Date / Time
No Known Allergies Allergy Verified 05/09/21 07:44
�Medication �Instructions �Recorded �Confirmed �Type
aspirin 81 mg chewable tablet 81 mg PO DAILY Blood Clot 09/02/14 01/08/25 History
Prevention/Tx
amlodipine 10 mg tablet 5 mg PO DAILY Blood Pressure 05/09/21 01/08/25 History
carvedilol 12.5 mg tablet 12.5 mg PO BID Blood Pressure 05/09/21 01/08/25 History
colchicine 0.6 mg tablet (Colcrys) 0.6 mg PO DAILYPRN PRN gout 05/09/21 01/08/25 History
Vitamin C PO DAILY Supplement 01/08/25 History
Vitamin D3 PO DAILY Supplement 01/08/25 History
allopurinol 100 mg tablet 100 mg PO DAILY Gout 01/08/25 01/08/25 History
atorvastatin 80 mg tablet 80 mg PO DAILY High Cholesterol 01/08/25 01/08/25 History
ethacrynic acid 50 mg tablet 100 mg PO DAILY Fluid 01/08/25 01/08/25 History
Retention/Swelling
magnesium 200 mg tablet 400 mg PO DAILY Supplement 01/08/25 01/08/25 History
Review of Systems
-
All other systems: Negative unless noted
Physical Exam
Vital Signs
Vital Signs
Temp Pulse Resp BP Pulse Ox
98.1 F 76 18 108/46 96
01/11/25 11:18 01/11/25 11:18 01/11/25 11:18 01/11/25 11:18 01/11/25 13:25
Lab Results
WBC 11.6 10^3/uL (4.8-10.8) H 01/11/25 07:05
RBC 3.30 10^6/uL (4.20-5.40) L 01/11/25 07:05
Hgb 10.7 g/dL (12.0-16.0) L 01/11/25 07:05
Hct 33.1 % (37.0-47.0) L 01/11/25 07:05
Plt Count 163 10^3/uL (130-400) 01/11/25 07:05
Sodium 141 mmol/L (135-145) 01/11/25 07:05
Potassium 4.1 mmol/L (3.5-5.1) 01/11/25 07:05
Chloride 106 mmol/L (98-107) 01/11/25 07:05
Carbon Dioxide 25 mmol/L (22-30) 01/11/25 07:05
BUN 50 mg/dl (7-17) H 01/11/25 07:05
Creatinine 1.9 mg/dL (0.6-1.0) H 01/11/25 07:05
eGFR 25.56 01/11/25 07:05
Glucose 109 mg/dl (70-99) H 01/11/25 07:05
Calcium 9.6 mg/dl (8.4-10.2) 01/11/25 07:05
Albumin 3.8 g/dl (3.5-5.0) 01/10/25 13:04
Physical Exam
General: Awake, Alert, Oriented, AOx3, No Distress and Nontoxic
HEENT: PERRL, EOMI, Anicteric, Conjunctivae Clear, Ear/Nose Intact and Facial Symmetry
Respiratory: Clear, Normal Excursion and Nonlabored Respirations
Breast: Deferred by me
Abdomen: Soft, Nontender and Nondistended
Musculoskeletal: No Cyanosis and No Edema
Skin: No Rash, Warm and Dry
Neuro: Nonfocal/Grossly Intact
Psych: Mood/afflect pleasant, Insight/judgement good and Appropriate
Data Reviewed
-
Radiology: Report Reviewed by me, Discussed with Patient and Discussed with Family
Labs: Labs Reviewed by me, Discussed with Patient and Discussed with Family
Assessment/Plan
-
IMP:
PATRICIA on CKD stage 3a-b
mild leukocytosis 2/2 UTI
Chest pain, concern for cardiac, NSTEMI
Bioprosthetic AV
CAD CABG and PCI
Poorly controlled HTN
Gout
Macrocytic anemia
Plan:
A/w CP, NSTEMI s/p LHC on 01/10, LVEDP 15, MVD with h/o CABG
PATRICIA-UA -UTI sample, check bladder scan , non oliguric
Fena low 0.3, suspect prerenal with soft BPs and contrast on 01/10
also with h/o bilat renal stents-consider to check duplex if cr increases further
hold diuretics and Amlodpine
ok to cont IVF per primary
abx per primary
avoid nephrotoxins
obtain records from her primary director life insurance at [place] [facility]
d/w pt and nursing
d/w daughter at bedside
[2025-01-11] MEDS: HEPARIN 5000 UNITS SC ×2 (15:18→23:05)
[2025-01-11] MEDS: ROCEPHIN 1000 MG IV (19:27)
[2025-01-11] MEDS: STERILE WATER FOR INJECTION 10 ML IV (19:30)
[2025-01-12] MEDS: NSS 1000 IV ×2 (01:16→13:21)
[2025-01-12 03:29] VITALS: BP 96/64
[2025-01-12 06:00] VITALS: BMI 32.2
[2025-01-12 07:25] LABS: % Basophils 0.3 % (0-2); % Eosinophils 1.8 % (0-6); % Immature Granulocytes 0.5 % (0-0.5); % Lymphocytes 8.8 % (20.5-51.1); % Monocytes 12.3 % (1.7-9.3); % Neutrophils 76.3 % (42.2-75.2); Absolute Eosinophils 0.2 10^3/uL (0-0.7); Absolute Immature Granulocytes 0.1 10^3/uL (0-0.05); Absolute Lymphocytes 0.9 10^3/uL (1.2-3.4); Absolute Monocytes 1.3 10^3/uL (0.1-0.6); Absolute Neutrophils 7.9 10^3/uL (1.4-6.5); Hematocrit 28.8 % (37.0-47.0); Hemoglobin 9.4 g/dL (12.0-16.0); Mean Corp Hgb Conc. 32.6 g/dL (33.0-37.0); Mean Corpuscular Hgb 32.5 pg (27.0-31.0); Mean Corpuscular Volume 99.7 fL (81.0-99.0); Mean Platelet Volume 11.9 fL (7.4-10.4); Nucleated Red Blood Cells % 0 %; Platelet Count 149 10^3/uL (130-400); Red Blood Cell Count 2.89 10^6/uL (4.20-5.40); Red Cell Dist. Width 13.8 % (11.5-14.5); White Blood Cell Count 10.3 10^3/uL (4.8-10.8)
[2025-01-12 07:58] LABS: ALT (SGPT) 14 U/L (0-35); AST (SGOT) 18 U/L (14-36); Albumin 3.2 g/dl (3.5-5.0); Alkaline Phosphatase 84 U/L (38-126); Blood Urea Nitrogen 44 mg/dl (7-17); Calcium 9.2 mg/dl (8.4-10.2); Carbon Dioxide 24 mmol/L (22-30); Chloride 111 mmol/L (98-107); Estimated Creatinine Clearance 23 ml/min; Glucose 104 mg/dl (70-99); Potassium 4.2 mmol/L (3.5-5.1); Sodium 142 mmol/L (135-145); Total Bilirubin 1.1 mg/dl (0.2-1.3); Total Protein 5.6 g/dl (6.3-8.2); eGFR 31.41
[2025-01-12 09:02] VITALS: BP 114/49
[2025-01-12] MEDS: HEPARIN 5000 UNITS SC ×3 (09:23→23:25)
[2025-01-12] MEDS: LIPITOR 80 MG PO (09:24)
[2025-01-12] MEDS: PLAVIX 75 MG PO (09:24)
[2025-01-12] MEDS: PROTONIX 40 MG PO (09:24)
[2025-01-12] MEDS: ZYLOPRIM 100 MG PO (09:24)
[2025-01-12] MEDS: COREG 25 MG PO ×2 (09:24→20:54)
[2025-01-12] MEDS: LOW STRENGTH ASPIRIN 81 MG PO (09:25)
--- NOTE | 2025-01-12 10:50 | W.PN.HOSP.TC ---
Addendum entered and electronically signed by Paco Tarango MD 01/12/25 11:32:
good bilateral dorsalis pedis pulses
Addendum entered and electronically signed by Paco Tarango MD 01/12/25 11:17:
No events on tele - reasonable to discontinue
Original Note:
Today's Communication/Plan
-
stop Norvasc
cont to hold Ethacrynic acid
BMP in AM
Assessment / Plan
Assessment / Plan
84yo F with PMHX of CAD s/p PCI and KS, carotid stenosis s/p b/l stents, b/l renal stents, CKD stge 3a-b, gout, HLD came with episode of retrosternal pressure started after dinner, lasted for appr 30min. She had episodes of the same before. Patient
currnetly going through a lot family issues and excessively anxious about her son being in ICU. S/p cardiac cath on 01/10/25. Later found UTI and post-cath PATRICIA
A/P:
#PATRICIA on CKD stage 3a-b
Cannot exclude KETURAH
also transient hypotension - Norvasc stopped
US renal with L renal atrophy and simple cysts
IVF
#mild leukocytosis 2/2 UTI
Ceftriaxone
Ucx - GNB pending further identification
#Chest pain, concern for cardiac, NSTEMI
#Bioprosthetic AV
#CAD s/p PCI
Serial troponin
EKG without overt ST elevation
Nitro PRN
Cardio consult: cardiac cath on 01/10/25 -The most obvious culprit is the 90% lesion in the vein graft anastomosis to OM1, however the OM1 vessel is a small territory, smaller than the catheter, making the likelihood of trauma to the artery quite
high, decided on medical mgmt
telemetry
Heparin drip stopped after cath
cont ASA, Plavix, Lipitor, BB
Echo
TSH WNL
LDL 40
#Poorly controlled HTN, concern for HTN emergency
adjust BP meds: increased Norvasc and Coreg initially, but developed hypotension after cardiac cath
patient not on ARB/ACEi, most likely 2/2 Hx of renal artery stenosis
Labetalol PRN
#Gout
cont home meds
#Macrocytic anemia
B12, folate WNL
DVT ppx hep
Full code
I have spent at least 56min reviewing chart, test results, communication with consultants and providing direct patient care
Anticipated Discharge: Within 24 hours
Subjective/Interval History
-
Date of Service: January 12, 2025
Objective Data
-
Labs:
Laboratory Results
01/12/25
07:02
WBC 10.3
Hgb 9.4 L
Hct 28.8 L
Plt Count 149
Sodium 142
Potassium 4.2
Chloride 111 H
Carbon Dioxide 24
BUN 44 H
Creatinine 1.6 H
Glucose 104 H
Calcium 9.2
Total Bilirubin 1.1
AST 18
ALT 14
Alkaline Phosphatase 84
Vital Signs:
Vital Signs
Temp Pulse Resp BP Pulse Ox
98.8 F 81 16 114/49 93
01/12/25 09:02 01/12/25 09:24 01/12/25 09:02 01/12/25 09:24 01/12/25 09:14
I&O
01/11/25 01/12/25 01/13/25
06:59 06:59 06:59
Intake Total 600 / 600 1989
Output Total 1725 / 1725 1400 / 1400
Balance -1125 / -1125 590 / 590
Review of Systems
-
History Source: Patient
All other systems: Reviewed and negative
Physical Exam
-
General: No Apparent Distress
HEENT: Normocephalic
Respiratory: Clear to Auscultation
GI: Soft, Nontender and Nondistended
Musculoskeletal: No Clubbing, No Cyanosis and No Edema
Neuro: Awake, Alert, Oriented and AO x 3
Psych: Calm
[2025-01-12 11:10] VITALS: BP 112/50
--- NOTE | 2025-01-12 13:16 | W.PN.NEPH.PH ---
Today's Communication / Plan
-
IV fluid
Assessment/Plan
-
IMP:
PATRICIA on CKD stage 3a-b
mild leukocytosis 2/2 UTI
Chest pain, concern for cardiac, NSTEMI
Bioprosthetic AV
CAD CABG and PCI
Poorly controlled HTN
Gout
Macrocytic anemia
Plan:
A/w CP, NSTEMI s/p LHC on 01/10, LVEDP 15, MVD with h/o CABG
PATRICIA-UA -UTI sample, check bladder scan , non oliguric
Fena low 0.3, suspect prerenal with soft BPs and contrast on 01/10
also with h/o bilat renal stents
hold diuretics and Amlodpine
ok to cont IVF
abx per primary
avoid nephrotoxins
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
-
-
Date of Service: January 12, 2025
CC / HPI / ROS
-
Patient without chest pain or shortness of breath
No overnight events.
Labs
-
Labs:
WBC 10.3 10^3/uL (4.8-10.8) 01/12/25 07:02
RBC 2.89 10^6/uL (4.20-5.40) L 01/12/25 07:02
Hgb 9.4 g/dL (12.0-16.0) L 01/12/25 07:02
Hct 28.8 % (37.0-47.0) L 01/12/25 07:02
Plt Count 149 10^3/uL (130-400) 01/12/25 07:02
Sodium 142 mmol/L (135-145) 01/12/25 07:02
Potassium 4.2 mmol/L (3.5-5.1) 01/12/25 07:02
Chloride 111 mmol/L (98-107) H 03/26/25 07:02
Carbon Dioxide 24 mmol/L (22-30) 01/12/25 07:02
BUN 44 mg/dl (7-17) H 01/12/25 07:02
Creatinine 1.6 mg/dL (0.6-1.0) H 01/12/25 07:02
eGFR 31.41 01/12/25 07:02
Glucose 104 mg/dl (70-99) H 01/12/25 07:02
Calcium 9.2 mg/dl (8.4-10.2) 01/12/25 07:02
Albumin 3.2 g/dl (3.5-5.0) L 01/12/25 07:02
Physical Exam
-
Vital Signs:
Vital Signs
Temp Pulse Resp BP Pulse Ox
98.2 F 74 16 112/50 96
01/12/25 11:10 01/12/25 11:10 01/12/25 11:10 01/12/25 11:10 01/12/25 11:10
Respiratory:: Bilateral: CTA
Lung Excursion:: Normal
Abdomen:: Soft
Bowel Sounds:: Normal
Extremity Edema:: None: Bilateral:
Sood Catheter: No
[2025-01-12 15:45] VITALS: BP 133/47
--- NOTE | 2025-01-12 16:11 | PTCARENOTE ---
Pt AAO x3, SHIRLEY; OOB to chair/BSC; ambulates in room with assist x1/walker, mohan well. VSS. Circ/neuro check to RLE WNL. On room air- pulse ox 95%, no SOB noted. Abd large, soft, mohan POP well. Voids on BSC without difficulty. Resting in bed at
present, no c/o. Will continue to monitor.
[2025-01-12 19:00] VITALS: BP 148/57
[2025-01-12] MEDS: STERILE WATER FOR INJECTION 10 ML IV (20:55)
[2025-01-12] MEDS: ROCEPHIN 1000 MG IV (20:55)
[2025-01-12 23:40] VITALS: BP 156/68
[2025-01-13] MEDS: NSS 1000 IV (02:20)
[2025-01-13] MEDS: TYLENOL 650 MG PO (02:21)
[2025-01-13 03:24] VITALS: BP 138/72
[2025-01-13 05:38] VITALS: BMI 32.2
[2025-01-13 07:42] LABS: Blood Urea Nitrogen 35 mg/dl (7-17); Calcium 9.4 mg/dl (8.4-10.2); Carbon Dioxide 23 mmol/L (22-30); Chloride 114 mmol/L (98-107); Estimated Creatinine Clearance 27 ml/min; Glucose 97 mg/dl (70-99); Potassium 4.4 mmol/L (3.5-5.1); Sodium 145 mmol/L (135-145); eGFR 36.87
[2025-01-13 08:01] VITALS: BP 98/61
[2025-01-13] MEDS: HEPARIN 5000 UNITS SC (09:05)
[2025-01-13] MEDS: COREG 25 MG PO (09:05)
[2025-01-13] MEDS: LOW STRENGTH ASPIRIN 81 MG PO (09:05)
[2025-01-13] MEDS: LIPITOR 80 MG PO (09:05)
[2025-01-13] MEDS: ZYLOPRIM 100 MG PO (09:05)
[2025-01-13] MEDS: PLAVIX 75 MG PO (09:05)
--- NOTE | 2025-01-13 10:26 | W.PN.HOSP.TC ---
Today's Communication/Plan
-
dc
Assessment / Plan
Assessment / Plan
84yo F with PMHX of CAD s/p PCI and PA, carotid stenosis s/p b/l stents, b/l renal stents, CKD stge 3a-b, gout, HLD came with episode of retrosternal pressure started after dinner, lasted for appr 30min. She had episodes of the same before. Patient
currnetly going through a lot family issues and excessively anxious about her son being in ICU. S/p cardiac cath on 01/10/25. Later found UTI and post-cath PATRICIA
A/P:
#PATRICIA on CKD stage 3b
Improved renal function
Creatinine, down to 1.4
also transient hypotension - Norvasc stopped
US renal with L renal atrophy and simple cysts
IVF
#mild leukocytosis 2/2 UTI
Ceftriaxone
Pansensitive Klebsiella
#Chest pain, concern for cardiac, NSTEMI
#Bioprosthetic AV
#CAD s/p PCI
Serial troponin
EKG without overt ST elevation
Nitro PRN
Cardio consult: cardiac cath on 01/10/25 -The most obvious culprit is the 90% lesion in the vein graft anastomosis to OM1, however the OM1 vessel is a small territory, smaller than the catheter, making the likelihood of trauma to the artery quite
high, decided on medical mgmt
telemetry
Heparin drip stopped after cath
cont ASA, Plavix, Lipitor, BB
Echo
TSH WNL
LDL 40
#Poorly controlled HTN, concern for HTN emergency
Better controlled blood pressure.
#Gout
cont home meds
#Macrocytic anemia
B12, folate WNL
DVT ppx hep
Full code
Total discharge time spent to see the patient, examine the patient, review data and lab results, discuss discharge plan with patient and nursing staff around 65 minutes
Anticipated Discharge: Today
Subjective/Interval History
-
Date of Service: January 13, 2025
Objective Data
-
Labs:
Laboratory Results
01/13/25
06:50
Sodium 145
Potassium 4.4
Chloride 114 H
Carbon Dioxide 23
BUN 35 H
Creatinine 1.4 H
Glucose 97
Calcium 9.4
Vital Signs:
Vital Signs
Temp Pulse Resp BP Pulse Ox
98.1 F 73 18 98/61 95
01/13/25 08:01 01/13/25 08:01 01/13/25 08:01 01/13/25 08:01 01/13/25 08:10
I&O
01/12/25 01/13/25 01/14/25
06:59 06:59 06:59
Intake Total 1989 / 1989 1740 / 1740
Output Total 1400 / 1400 1400 / 1400
Balance 590 / 590 340 / 340
[2025-01-13] MEDS: ROCEPHIN 1000 MG IV (13:24)
[2025-01-13] MEDS: STERILE WATER FOR INJECTION 10 ML IV (13:24)
--- NOTE | 2025-01-13 13:33 | CM ---
Chart reviewed. Patient is stable for d/c today. Therapy assessed patient, rec home. Patient and daughter not agreeable to rehab.
Spoke w/ patient who is agreeable to d/c today and home PT through [facility]. [facility] referral completed in [facility]
Per patient, her son is in the ICU and was rushed to surgery, CM provided comfort and support at this time. Patient is happy to d/c home and to be w/ her family supporting her son at this time. Patient stated her [id number], son and some other
family members will be coming to the hospital this afternoon and will transport her home.
IMM verbally reviewed, patient given copy, copy placed on chart
Plan: Home w/ [facility]
--- NOTE | 2025-01-13 14:23 | W.DCSUMMARY ---
Discharge Summary
Discharge Data
Date of Admission: 01/08/25
Date of Discharge: 01/13/25
-
Pending Results: No
Hospital Course
84 years old female presented to the hospital with chest pain and epigastric pain. Initial troponin was 0.014, then increased to 0.04, peak at 0.137 . Patient had history of coronary artery disease status post coronary bypass and bio prosthetic
aortic valve replacement in 2020. EKG showed normal sinus rhythm with left ventricular hypertrophy and evidence of anterior infarct. She was initially treated as acute coronary syndrome, non-ST elevation KS, she received intravenous heparin and
antiplatelet. She underwent left heart catheterization that showed severe, multivessel disease. The MORSE is grafted to a large D1 which parallels the LAD. There was significant LMCA/pLAD disease as well. The SVG to the RCA is occluded and there
was a 90% lesion at the anastomosis of the SVG to OM1. Cardiology recommended medical management with anti-anginal therapy and DAPT. Patient was noted to have elevated blood pressure and carvedilol was increased to 25 mg twice a day and amlodipine
to 10 mg daily. Patient did not tolerate that dose well because of symptomatic hypotension. Amlodipine was held. And she was placed back on her original dose of 5 mg daily with good response. Patient has underlying chronic kidney disease stage
IIIb. She had mild PATRICIA post catheterization and was given IV fluid. Creatinine stabilized around 1.4. Urine culture showed pansensitive Klebsiella pneumonia and was treated with antibiotics. Patient was evaluated by physical therapy and
recommended home discharge. Patient remained hemodynamically stable and was discharged home in a stable condition.
Discharge Plan
-
Patient Disposition: Home (Routine Discharge)
Discharge Diagnosis/Procedures: Cardiac catherization
CKD stage 3b
UTI, urine culture positive for pansensitive Klebsiella pneumoniae bacteria.
Diet: Low Cholesterol and Low Sodium
Stand Alone Forms: DC Instructions- Cath/EP Lab
Referrals:
Carlos Rios MD [Other] (Primary provider)
Rosalva Torres MD [Non-Admitting Privileges] - in two to three weeks (Cardiology followup)
Prescriptions:
New
carvedilol 25 mg Tablet
25 mg PO BID Qty: 60 0RF
clopidogrel 75 mg Tablet
75 mg PO DAILY Qty: 30 0RF
nitroglycerin 0.4 mg Tablet, Sublingual
0.4 mg sublingual [id number] PRN (Reason: Chest Pain) Qty: 10 0RF
cephalexin 500 mg capsule
500 mg PO Q8H Qty: 7 0RF
Continued
aspirin 81 MG tablet,chewable
81 mg PO DAILY
amlodipine 10 MG tablet
5 mg PO DAILY
colchicine [Colcrys] 0.6 MG tablet
0.6 mg PO DAILYPRN PRN (Reason: gout)
Rx Instructions:
Takes 1 or 2 daily PRN
atorvastatin 80 mg Tablet
80 mg PO DAILY
ethacrynic acid 50 mg Tablet
100 mg PO DAILY
allopurinol 100 mg Tablet
100 mg PO DAILY
magnesium 200 mg Tablet
400 mg PO DAILY
Vitamin C
PO DAILY
Vitamin D3
PO DAILY
Discontinued
carvedilol 12.5 MG tablet
12.5 mg PO BID
Discharge Orders:
Discharge Patient (As Directed); Ordered 01/13/25
Ordered By: Rosalind Cook
Discharge Date and Time
Discharge Date/Time: 01/13/25 19:29
Print Language: BULGARIAN
--- NOTE | 2025-01-13 15:33 | W.PN.NEPH.PH ---
Today's Communication / Plan
-
Before discharge from renal standpoint
Assessment/Plan
-
IMP:
PATRICIA on CKD stage 3a-b
mild leukocytosis 2/2 UTI
Chest pain, concern for cardiac, NSTEMI
Bioprosthetic AV
CAD CABG and PCI
Poorly controlled HTN
Gout
Macrocytic anemia
Plan:
A/w CP, NSTEMI s/p LHC on 01/10, LVEDP 15, MVD with h/o CABG
PATRICIA-UA -UTI sample, check bladder scan , non oliguric
Fena low 0.3, suspect prerenal with soft BPs and contrast on 01/10
also with h/o bilat renal stents
abx per primary
avoid nephrotoxins
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
Creatinine down to 1.4. She is stable for discharge from renal [id number] outpatient
Can resume her ethacrynic acid
-
-
Date of Service: January 13, 2025
CC / HPI / ROS
-
Patient without chest pain or shortness of breath
No overnight events.
Labs
-
Labs:
WBC 10.3 10^3/uL (4.8-10.8) 01/12/25 07:02
RBC 2.89 10^6/uL (4.20-5.40) L 01/12/25 07:02
Hgb 9.4 g/dL (12.0-16.0) L 01/12/25 07:02
Hct 28.8 % (37.0-47.0) L 01/12/25 07:02
Plt Count 149 10^3/uL (130-400) 01/12/25 07:02
Sodium 145 mmol/L (135-145) 01/13/25 06:50
Potassium 4.4 mmol/L (3.5-5.1) 01/13/25 06:50
Chloride 114 mmol/L (98-107) H 01/13/25 06:50
Carbon Dioxide 23 mmol/L (22-30) 01/13/25 06:50
BUN 35 mg/dl (7-17) H 01/13/25 06:50
Creatinine 1.4 mg/dL (0.6-1.0) H 01/13/25 06:50
eGFR 36.87 01/13/25 06:50
Glucose 97 mg/dl (70-99) 01/13/25 06:50
Calcium 9.4 mg/dl (8.4-10.2) 01/13/25 06:50
Albumin 3.2 g/dl (3.5-5.0) L 01/12/25 07:02
Physical Exam
-
Vital Signs:
Vital Signs
Temp Pulse Resp BP Pulse Ox
98.1 F 73 18 98/61 95
01/13/25 08:01 01/13/25 08:01 01/13/25 08:01 01/13/25 08:01 01/13/25 08:10
Respiratory:: Bilateral: CTA
Lung Excursion:: Normal
Abdomen:: Soft
Bowel Sounds:: Normal
Extremity Edema:: None: Bilateral:
Sood Catheter: No
[2025-01-13 15:36] VITALS: BP 162/58
[2025-01-13] MEDS: NSS IV (17:36)
[2025-01-13] MEDS: HEPARIN SC (17:36)
== END 2025-01-13 19:29 | disposition home health service (06) | DRG 281 ==
LOC: 4 EAST ACU 10:56
PROVIDERS: Internal Medicine; Internal Medicine Cardiovascular Disease; Nurse Practitioner; ADMITTING PHYSICIAN Hospitalist; ATTENDING PHYSICIAN Internal Medicine; CONSULT PHYSICIAN Internal Medicine; EMERGENCY PHYSICIAN Emergency Medicine
PROC: B2111ZZ Fluoroscopy of Multiple Coronary Arteries using Low Osmolar Contrast (ICD-10-PCS; 2025-01-10)
PROC: 4A023N7 Measurement of Cardiac Sampling and Pressure, Left Heart, Percutaneous Approach (ICD-10-PCS; 2025-01-10)
PROC: B2131ZZ Fluoroscopy of Multiple Coronary Artery Bypass Grafts using Low Osmolar Contrast (ICD-10-PCS; 2025-01-10)
DX: I21.4 Non-ST elevation (NSTEMI) myocardial infarction (principal); I16.1 Hypertensive emergency; I25.810 Atherosclerosis of coronary artery bypass graft(s) without angina pectoris; J84.9 Interstitial pulmonary disease, unspecified; N17.9 Acute kidney failure, unspecified; N39.0 Urinary tract infection, site not specified; N18.32 Chronic kidney disease, stage 3b; I70.1 Atherosclerosis of renal artery; D53.9 Nutritional anemia, unspecified; I10 Essential (primary) hypertension; I25.10 Atherosclerotic heart disease of native coronary artery without angina pectoris; F90.9 Attention-deficit hyperactivity disorder, unspecified type; N26.1 Atrophy of kidney (terminal); I95.9 Hypotension, unspecified; N28.1 Cyst of kidney, acquired; B96.1 Klebsiella pneumoniae [K. pneumoniae] as the cause of diseases classified elsewhere; M19.90 Unspecified osteoarthritis, unspecified site; M10.9 Gout, unspecified; Z60.2 Problems related to living alone; Z95.3 Presence of xenogenic heart valve; Z95.1 Presence of aortocoronary bypass graft; Z95.0 Presence of cardiac pacemaker; Z95.5 Presence of coronary angioplasty implant and graft; Z79.82 Long term (current) use of aspirin; Z11.52 Encounter for screening for COVID-19
CPT/HCPCS: 71046; 76770; 80048; 80053; 80061; 81003; 81015; 82570; 82607; 82746; 83036; 83690; 83935; 84300; 84443; 84484; 85025; 85027; 85730; 87077; 87086; 87186; 87502; 87811; 93005; 93306; 93458; 97116; 97162; 99285; C1760; C1894; Q9967